=== PATIENT | female | born 1935 | race Two or more races ===

== ENCOUNTER 2017-09-08 13:30 | Emergency (ER) | payer MEDICARE ==
[~2017-09-08] VITALS: Ht 160 cm; Wt 71.4 kg
--- NOTE | 2017-09-08 13:31 | NUR ---
PATIENT WAS TAKEN TO CT
[2017-09-08] MEDS ORDERED: IV NS 0.9% 500 ML IV ONE (13:34)
[2017-09-08] MEDS ORDERED: CT SWABBABLE VALVE TRANS SET 1 EA INFUS.SET MC ONE (13:34)
[2017-09-08] MEDS ORDERED: IOHEXOL-350 100 ML VIAL IV ONE (13:34)
--- NOTE | 2017-09-08 13:34 | NUR ---
BIB FROM HOME DT RIGHT FACIAL DROOP AND SLURRED SPEECH, PATIENT WAS LAST KNOWN WELL 1300 TODAY. PATIENT RECEIVED AWAKE AND ALERT X4, APPEARS IN NO DISTRESS, RESPIRATION EVEN AND UNLABORED. DENIES CHEST PAIN. NO EXTREMITIES WEAKNESS NOTED. PATIENT' VSS. MD ALVAREZ AT BS
--- NOTE | 2017-09-08 13:36 | NUR ---
CALLED 'S TELESTROKE LINE, SPOKE WITH MAGDALENA, PRESENTED PT, AWAITING CALLBACK FROM (NEUROLOGIST).
--- NOTE | 2017-09-08 13:46 | NUR ---
PT IS BACK FROM CT
[2017-09-08 13:55] LABS: BASOPHILS % (AUTO) 0.5 % (0.0-2.0); EOSINOPHILS # (AUTO) 0.1 /CMM (0.0-0.7); EOSINOPHILS % (AUTO) 2.3 % (0.0-6.0); HEMATOCRIT 38 % (33-45); HEMOGLOBIN 12.9 g/dL (11.5-14.8); LYMPHOCYTES # (AUTO) 0.9 /CMM (0.8-4.8); LYMPHOCYTES % (AUTO) 19.4 % (20.0-44.0); MEAN CORPUSCULAR HEMOGLOBIN 30 PG (26.0-33.0); MEAN CORPUSCULAR HGB CONC 34 g/dl (31.0-36.0); MEAN CORPUSCULAR VOLUME 87 fL (82-100); MONOCYTES # (AUTO) 0.3 /CMM (0.1-1.30); NEUTROPHILS # (AUTO) 3.5 /CMM (1.8-8.9); NEUTROPHILS % (AUTO) 71.8 % (43.0-81.0); PLATELET COUNT (AUTO) 199 /CMM (150-450); RDW COEFFICIENT OF VARIATION 13.6 (11.5-15.0); RED BLOOD CELL COUNT(AUTO) 4.33 MIL/uL (4.0-5.2); WHITE BLOOD COUNT (AUTO) 4.8 K/uL (4.3-11.0)
[2017-09-08] MEDS ORDERED: ALTEPLASE 100 MG/VIAL VIAL IV ONE (14:00)
[2017-09-08 14:07] LABS: INR 1.05 (0.87-1.13)
[2017-09-08 14:09] LABS: CALCIUM, SERUM 8.9 mg/dL (8.5-10.1); CARBON DIOXIDE 22 mmol/L (21-32); CHLORIDE 109 mmol/L (98-107); GLUCOSE 113 mg/dL (74-106); POTASSIUM 4.2 mmol/L (3.5-5.1); SODIUM SERUM 139 mmol/L (136-145); UREA NITROGEN, BLOOD 24 mg/dL (7-18)
[2017-09-08 14:12] LABS: TROPONIN I < 0.017 ng/mL (0.00-0.056)
[2017-09-08 14:16] LABS: ALANINE AMINOTRANSFERASE 15 U/L (12-78); ALBUMIN 2.8 g/dL (3.4-5.0); ALKALINE PHOSPHATASE 51 U/L (46-116); ASPARTATE AMINOTRANSFERASE 15 U/L (15-37); BILIRUBIN,DIRECT 0.1 mg/dL (0.0-0.2); BILIRUBIN,TOTAL 0.3 mg/dL (0.2-1.0); TOTAL PROTEIN, SERUM 5.9 g/dL (6.4-8.2)
--- NOTE | 2017-09-08 14:27 | NUR ---
FAXED PT RESULTS TO [phone]
[2017-09-08] MEDS ORDERED: NICARDIPINE IN DEXTROSE,ISO-OS 0 ML IV ONE (14:35)
[2017-09-08] MEDS ORDERED: NICARDIPINE IN NACL, ISO-OSM 200 ML IV ONE (15:00)
[2017-09-08 15:27] VITALS: BP 149/66
--- NOTE | 2017-09-08 15:28 | NUR ---
Patient discharged and report given to NICOLÁS KABA ([facility]) in stable condition. Written and verbal after care instructions given. Patient verbalizes understanding of instruction.
--- NOTE | 2017-09-08 15:30 | NUR ---
nicardipine not given, blood pressure was WNL. CLOVER forrester made aware.
== END 2017-09-08 15:30 | disposition short-term general hospital (02) ==
LOC: ER 13:31
DX: I63.9 Cerebral infarction, unspecified (principal)
CPT/HCPCS: 36415; 37195; 70450; 70496; 70498; 71045; 80048; 80076; 84484; 85025; 85730; 93005; 99291; A4216; A4606; J2997; J7040; Q9967; Z7610